=== PATIENT | male | born 1965 ===

== ENCOUNTER 2024-06-24 13:57 | Outpatient (CLI) | payer SELFPAY ==
--- NOTE | ~2024-06-24 | MR_ITS ---
EXAMINATION: MR abdomen wo/w con DATE: 06/24/2024 14:59 INDICATION: Splenic mass. Prostate cancer. TECHNIQUE: Magnetic resonance imaging (MRI) of the abdomen was performed without and with 20 mL Multi Jesus intravenous contrast. COMPARISON: None. FINDINGS: There is diffuse hepatic steatosis. The gallbladder is normal. There is an 18 mm hyperenhancing mass in the spleen. The pancreas and adrenal glands are normal. There are cysts in the kidneys measuring u p to 5 mm on the right. There is diverticulosis of the colon without evidence of diverticulitis. Ther e are no dilated loops of bowel. There is a small sliding hiatal hernia. There are no pathologically enlarged lymph nodes. There is no free intraperitoneal fluid. IMPRESSION: 1. 18 mm hyperenhancing mass in the spleen. The differential diagnosis includes hemangioma, hamartoma , metastatic disease, and rare primary malignancy. Correlate with PET/CT. If the mass demonstrates in creased activity on PET, consider biopsy. Reviewed, dictated and finalized at location A. BLOWER IMPRESSION: 1. 18 mm hyperenhancing mass in the spleen. The differential diagnosis includes hemangioma, hamartoma, metastatic disease, and rare primary malignancy. Correl ate with PET/CT. If the mass demonstrates increased activity on PET, consider b iopsy.
== END 2024-06-24 13:58 | disposition home or self-care (01) ==
PROVIDERS: PCP Urology; Visit Provider Urology
DX: R16.1 Splenomegaly, not elsewhere classified (principal); C61 Malignant neoplasm of prostate
CPT/HCPCS: 74183; A9577